=== PATIENT | male | born 1950 | race Two or more races ===

== ENCOUNTER 2018-11-12 07:15 | Outpatient (CLI) | payer OTHER | END 2018-11-12 07:25 | disposition home or self-care (01) | LOC: NUCLEAR 07:15 | DX: M89.9 Disorder of bone, unspecified (principal) | CPT/HCPCS: 78315; A9503 ==

== ENCOUNTER 2020-12-21 08:00 | Outpatient (CLI) | payer OTHER | END 2020-12-21 08:30 | disposition home or self-care (01) | LOC: PPH VACUNA 08:00 | PROVIDERS: ATTEND Emergency Medicine Pediatric Emergency Medicine | DX: Z23 Encounter for immunization (principal) ==

== ENCOUNTER 2024-09-30 09:45 | Emergency (ER) | payer OTHER ==
[~2024-09-30] VITALS: Ht 162.6 cm; Wt 81.2 kg
[2024-09-30] MEDS ORDERED: PEPCID AC10 MG (09:56)
[2024-09-30] MEDS ORDERED: KETOROLAC TROMETHAMINE 60 MG VIAL IM STA (10:01)
[2024-09-30] MEDS ORDERED: ORPHENADRINE CITRATE 30 MG/ML AMPUL IM STA (10:01)
[2024-09-30] MEDS ORDERED: ACETAMINOPHEN 500 MG GEL..CAP PO STA (10:02)
== END 2024-09-30 11:35 | disposition home or self-care (01) ==
LOC: ER 09:45
DX: S10.83XA Contusion of other specified part of neck, initial encounter (principal); V49.88XA Car occupant (driver) (passenger) injured in other specified transport accidents, initial encounter; Y93.89 Activity, other specified; Y92.89 Other specified places as the place of occurrence of the external cause; Y99.8 Other external cause status; G24.3 Spasmodic torticollis; Z88.6 Allergy status to analgesic agent
CPT/HCPCS: 71045; 72040; 96372; 99283; J1885; J2360